=== PATIENT | male | born 1965 | race Caucasian/White ===

== ENCOUNTER 2020-02-13 15:11 | Emergency (ER) | payer OTHER ==
[2020-02-13] MEDS ORDERED: PERCOCET 325 MG1 TA5 PO (16:37)
[2020-02-13 16:45] VITALS: BP 164/85
== END 2020-02-13 16:45 | disposition home or self-care (01) ==
LOC: ED 15:11
DX: S06.0X0A Concussion without loss of consciousness, initial encounter (principal); W22.8XXA Striking against or struck by other objects, initial encounter; Y92.59 Other trade areas as the place of occurrence of the external cause